=== PATIENT | female | born 1985 | race Caucasian/White ===

== ENCOUNTER → 2016-10-28 | Outpatient (CLI) | payer MEDICAID ==
[~2016-10-28] MED LIST: ALBU2.5V NEB; ALBUTEROL INHALER; BUPR100T11 PO; DEXA4TAB PO; ERGO500017 PO; METF850T2 PO; METH750T2 PO; OXYB5TAB7 PO; OXYC-229 PO; PREG100C PO; TRAZ100T15 PO
== END | disposition home or self-care (01) ==
LOC: RAD 14:06
PROVIDERS: ATTEND Internal Medicine
DX: N20.0 Calculus of kidney (principal); R16.1 Splenomegaly, not elsewhere classified; N39.0 Urinary tract infection, site not specified; Z90.49 Acquired absence of other specified parts of digestive tract
CPT/HCPCS: 74176

== ENCOUNTER 2017-03-24 10:33 | Emergency (ER) | payer MEDICAID ==
[~2017-03-24] VITALS: Ht 160 cm; Wt 126.6 kg
[~2017-03-24 10:33] MED LIST changes: -OXYC-229 PO; +OXYC-307 PO
[2017-03-24] MEDS ORDERED: FAMOTIDINE 20 MG/2 ML ONE (11:17)
[2017-03-24] MEDS ORDERED: ONDANSETRON 2MG/ML, 2ML ONE ×2 (11:17→12:29)
[2017-03-24 11:27] LABS: HEMATOCRIT 42.4 % (34.6-47.8); HEMOGLOBIN 14.4 g/dL (11.7-16.4); WHITE BLOOD COUNT 4.9 x10^3/uL (3.4-10)
[2017-03-24] MEDS ORDERED: ONDANSETRON 2MG/ML, 2ML IVPush ONE ×2 (11:30→12:30)
[2017-03-24] MEDS ORDERED: SODIUM CHLORIDE FLUSH 10ML SYR IVF ONE (11:30)
[2017-03-24] MEDS ORDERED: SODIUM CHLORIDE 0.9% 1,000ML IVBOLUS ONE (11:30)
[2017-03-24] MEDS ORDERED: FAMOTIDINE 20 MG/2 ML IVP ONE (11:30)
[2017-03-24 11:40] LABS: ASPARTATE AMINO TRANSFERASE 206 U/L (15-37); BLOOD UREA NITROGEN 10 mg/dL (7-18)
[2017-03-24] MEDS ORDERED: FENTANYL PF 100 MCG/2ML ONE (11:42)
[2017-03-24] MEDS ORDERED: FENTANYL PF 100 MCG/2ML IV ONE (12:00)
[2017-03-24 13:05] VITALS: BP 114/77
== END 2017-03-24 15:47 | disposition home or self-care (01) ==
LOC: ED 12:31
DX: E86.0 Dehydration (principal); R19.7 Diarrhea, unspecified; E28.2 Polycystic ovarian syndrome; M81.0 Age-related osteoporosis without current pathological fracture; J45.909 Unspecified asthma, uncomplicated; E66.01 Morbid (severe) obesity due to excess calories; Z68.36 Body mass index [BMI] 36.0-36.9, adult
CPT/HCPCS: 36415; 74176; 80053; 81001; 83690; 84703; 85025; 85610; 87086; 96361; 96374; 96375; 96376; 99285; J2405; J3010; J7030; S0028

== ENCOUNTER 2018-05-12 19:07 | Emergency (ER) | payer MEDICAID ==
[~2018-05-12] VITALS: Ht 160 cm; Wt 137.1 kg
[~2018-05-12 19:07] MED LIST changes: +METF850T10 PO; -METF850T2 PO; +TRAZ-137 PO; -TRAZ100T15 PO
[2018-05-12 19:15] VITALS: BP 128/70
[2018-05-12 19:53] LABS: BASOPHILS # (AUTO) 0.04 x10^3/uL (0-0.1); BASOPHILS % (AUTO) 1 % (0-1); EOSINOPHILS # (AUTO) 0.43 x10^3/uL (0-0.4); EOSINOPHILS % (AUTO) 6 % (1-7); LYMPHOCYTES # (AUTO) 3.22 x10^3/uL (1-3.4); LYMPHOCYTES % (AUTO) 42 % (22-44); MD NO; MEAN CORPUSCULAR HEMOGLOBIN 28.7 pg (27.0-34.8); MEAN CORPUSCULAR HGB CONC 33.3 g/dL (32.4-35.8); MEAN CORPUSCULAR VOLUME 86.1 fL (80-100); MEAN PLATELET VOLUME 7.8 fL (7.4-10.4); MONOCYTES # (AUTO) 0.45 x10^3/uL (0.2-0.8); MONOCYTES % (AUTO) 6 % (2-9); NEUTROPHILS # (AUTO) 3.55 x10^3/uL (1.8-6.8); NEUTROPHILS % (AUTO) 46 % (42-75); PLATELET COUNT 250 x10^3/uL (130-400); RED BLOOD COUNT 4.89 x10^6/uL (3.82-5.3); RED CELL DISTRIBUTION WIDTH 12.9 % (9.6-15.2)
[2018-05-12 20:07] LABS: ALBUMIN 3.8 g/dL (3.4-5.0); ANION GAP 7 mmol/L (5-15); CALCIUM 8.6 mg/dL (8.5-10.1); CHLORIDE 109 mmol/L (98-107)
[2018-05-12 20:14] LABS: CREATININE 0.82 mg/dL (0.55-1.02); TROPONIN I < 0.015 ng/mL (0.000-0.045)
--- NOTE | 2018-05-12 21:47 | NUR ---
NO ANSWER FOR 2ND VIATLS PATIENT GONE PER REGISTRATION.
--- NOTE | 2018-05-12 21:49 | NUR ---
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 NO ANSWER. PT ASSUMED TO HAVE LEFT
== END 2018-05-12 21:50 | disposition left against medical advice (07) ==
LOC: ED 21:44
DX: R07.9 Chest pain, unspecified (principal); R51 Headache; M79.601 Pain in right arm; E66.9 Obesity, unspecified
CPT/HCPCS: 36415; 71045; 80048; 82040; 83880; 84484; 85025; 93005; 99284